=== PATIENT | male | born 1945 | race Caucasian/White ===

== ENCOUNTER 2018-02-17 10:00 | Emergency (ER) | payer MEDICARE ==
[~2018-02-17] VITALS: Ht 175.3 cm; Wt 78.0 kg
[~2018-02-17 10:00] MED LIST: AMLO2.5T45 PO; CALC300T4 PO; CHOL400T15 PO; LISI40TA4 PO; MELA5TAB3 PO; SOTA80TA PO
[2018-02-17] MEDS ORDERED: SODIUM CHLORIDE 0.9% 1,000 ML IV ONE ×2 (10:37→12:15)
[2018-02-17 10:53] LABS: CLARITY URINE CLEAR (CLEAR); COLOR URINE YELLOW (YELLOW); KETONES URINE NEGATIVE (NEGATIVE); LEUKOCYTE ESTERASE URINE NEGATIVE (NEGATIVE); NITRITE URINE NEGATIVE (NEGATIVE); OCCULT BLOOD URINE NEGATIVE (NEGATIVE); PH URINE 7.5 (4.5-8.0); PROTEIN URINE NEGATIVE (NEGATIVE); SPECIFIC GRAVITY URINE 1.012 (1.005-1.030); UROBILINOGEN URINE 0.2 E.U./dL (0.2-1.0)
[2018-02-17 11:08] LABS: CHLORIDE 107 mEq/L (98-107)
[2018-02-17 11:09] LABS: BASOPHILS % 0.9 % (0.0-2.0); EOSINOPHILS % 2.3 % (0.0-5.0); HEMATOCRIT. 36.8 % (42.0-52.0); HEMOGLOBIN. 12.7 g/dL (14.0-18.0); LYMPHOCYTES % 8.8 % (20.0-50.0); MEAN CORPUSCULAR HEMOGLOBIN 31.3 pg (28.0-32.0); MEAN CORPUSCULAR VOLUME 90.5 fL (80.0-94.0); MEAN PLATELET VOLUME 8.9 fl (7.4-10.4); MONOCYTES % 7.3 % (2.0-8.0); NEUTROPHILS % 80.7 % (40.0-76.0); PLATELET 188 x1000/uL (130-400); RED BLOOD CELL COUNT 4.07 mill/uL (4.7-6.1); RED CELL DISTRIBUTION WIDTH 13.3 % (11.6-14.6)
[2018-02-17 15:47] VITALS: BP 165/86
== END 2018-02-17 15:47 | disposition home or self-care (01) ==
LOC: ER 10:11
DX: E86.0 Dehydration (principal); I10 Essential (primary) hypertension
CPT/HCPCS: 36415; 80053; 81003; 85025; 93005; 96360; 96361; 99285; J7030

== ENCOUNTER 2018-04-02 07:37 | Emergency (ER) | payer MEDICARE, OTHER ==
[~2018-04-02] VITALS: Ht 172.7 cm; Wt 80.0 kg
[2018-04-02 08:32] LABS: BASOPHILS % 1.2 % (0.0-2.0); EOSINOPHILS % 1.3 % (0.0-5.0); HEMATOCRIT. 38.8 % (42.0-52.0); LYMPHOCYTES % 9.7 % (20.0-50.0); MEAN CORPUSCULAR HEMOGLOBIN 30.9 pg (28.0-32.0); MEAN PLATELET VOLUME 8.8 fl (7.4-10.4); NEUTROPHILS % 80.8 % (40.0-76.0); PLATELET 149 x1000/uL (130-400); RED BLOOD CELL COUNT 4.22 mill/uL (4.7-6.1); RED CELL DISTRIBUTION WIDTH 13.4 % (11.6-14.6)
[2018-04-02 08:39] LABS: CHLORIDE 110 mEq/L (98-107)
[2018-04-02 08:40] LABS: PROTHROMBIN TIME 10.8 sec (9.4-11.6)
[2018-04-02] MEDS ORDERED: LISINOPRIL 40MG TABLET PO ONE (09:00)
[2018-04-02] MEDS ORDERED: SOTALOL HCL 80MG TABLET PO ONE (09:00)
[2018-04-02] MEDS ORDERED: DOXAZOSIN MESYLATE 4MG TABLET PO ONE (09:00)
[2018-04-02] MEDS ORDERED: AMLODIPINE 5MG TABLET PO ONE (09:00)
[2018-04-02 10:34] VITALS: BP 127/74
== END 2018-04-02 10:38 | disposition home or self-care (01) ==
LOC: ER 08:34
DX: F41.8 Other specified anxiety disorders (principal); R00.2 Palpitations; R42 Dizziness and giddiness; I48.91 Unspecified atrial fibrillation; D64.9 Anemia, unspecified; E88.09 Other disorders of plasma-protein metabolism, not elsewhere classified; I10 Essential (primary) hypertension; Z79.899 Other long term (current) drug therapy
CPT/HCPCS: 36415; 71045; 80053; 83880; 84484; 85025; 85610; 93005; 99285